=== PATIENT | female | born 1970 | race Caucasian/White ===

== ENCOUNTER 2017-05-27 18:10 | Emergency (ER) | payer OTHER ==
--- NOTE | 2017-05-27 19:01 | ED CLINICAL REPORT ---
Clinical Report - Physicians/Mid Levels [facility] [address] [place] [address] 05/27/2017 18:11 Patient: KYLEE SALEH Time Seen: 18:26. Arrived- By private vehicle. Historian- patient. HISTORY OF PRESENT ILLNESS Chief Complaint: TENDER AREA. This started about 1 1/2 weeks ago and is still present. It was gradual in onset and has been waxing/waning. It is described as painful. It has been located on the right abdomen. A cause has been identified (Injection drug use site). Similar symptoms previously: Recent medical care: Not recently seen/assessed. REVIEW OF SYSTEMS No fever, chills, cough, difficulty breathing or headache. No chest pain, nausea, diarrhea, difficulty with urination or vomiting. She has had constant abdominal pain (only in area of abscess). The pain is described as located in the right lower quadrant. All systems otherwise negative, except as recorded above. PAST HISTORY Anxiety Reaction. Headache. Dental Abscess Substance abuse - injects heroin. Medications: Methadone HCl Oral 85mg, daily. Motrin Oral. Allergies: Penicillin. Sulfa Antibiotics. SOCIAL HISTORY Smoker- current status unknown. History of IV drug use: heroin. No alcohol use. Residence: [place]. ADDITIONAL NOTES The nursing notes have been reviewed. PHYSICAL EXAM Vital Signs: 05/27/2017 18:16 BP: 114/75. HR: 110. RR: 20. O2 saturation: 100%. Temp: 98.2 F. Pain level now: 5/10. Eyes: Conjunctivae and eyelids normal. ENT: Pharynx normal. Neck: Neck supple. CVS: Tachycardia. Heart sounds normal. Respiratory: No respiratory distress. Breath sounds normal. Abdomen: Moderate tenderness in the right lower quadrant. No organomegaly. (abscess RLQ o/w nontender). Skin: No cyanosis. No pallor. No diaphoresis. Single large abscess with fluctuance and cellulitis to the abdomen. No drainage. Extremities: Normal external inspection. Extremities nontender. Neuro: Oriented X 3. LABS, X-RAYS, AND EKG Laboratory Tests: Culture, Wound Surface: (GABBY: 05/27/2017 18:45) ( MsgRcvd 05/27/2017 20:12) IP SPECIMEN DESCRIPTION: ABSCESS Test Result Flag Units (Reference) GRAM STAIN, WOUND, SUPERFICIAL DATE: 05/27/17 EPITHELIAL CELLS: RARE GRAM POSITIVE COCCI: MANY WHITE BLOOD CELLS: NONE -- ABDOMEN . Pulse Oximetry: 05/27/2017 18:16 O2 saturation: 100%. (FIO2 - room air). Interpretation: normal. PROGRESS AND PROCEDURES Incision & Drainage of Abscess: The abscess is located in the abdomen. The risks of the procedure, benefits and alternatives were explained. Consent was obtained. Local anesthesia provided using 0.50% Marcaine with epi and bicarb. Skin cleansed with Betadine. The abscess was incised with a #11 surgical blade. A large amount of pus was drained. Cavity was irrigated with saline and packed with gauze. Sample obtained for cultures and gram stain. A dressing was applied. Course of Care: Clindamycin 300 mg PO given. Large abscess with I&D. No fever or systemic symptoms now. Recommended IV antibiotics but pt states we will not be able to start an IV, so refuses this. I have suggested central line or IO line, but again she refuses this - after discussion of risks and benefits. Abscess I&D is likely to result in resolution of the infectious process, but has coexistent cellulitis, therefore I will continue course of abx- she is sulfa and pen allergic. I will begin clinda until cultures return or pt is having definite clinical improvement. Patient/family counseled. Old ED records reviewed. Disposition orders written. Disposition: Discharged. Condition: stable and improved. CLINICAL IMPRESSION Cellulitis of the abdominal wall. Single deep abscess to the abdominal wall with incision and drainage. Chronic substance abuse- tobacco (cigarettes), heroin. No intoxication. INSTRUCTIONS Do not work for two days. Drink plenty of fluids. Do not smoke. Seek medical help to quit smoking. (You may change the packing in about 48 hours with the packing and tools provided- please clean with isopropyl alcohol and let air dry before using - or your doctor may choose to change the packing for you). Warnings: Further evaluation is necessary in order to obtain test results and conduct further tests. It is very important to follow up with a physician. GENERAL WARNINGS: Return or contact your physician immediately if your condition worsens or changes unexpectedly, if not improving as expected, or if other problems arise. Your Current Medications: CONTINUE TAKING THE FOLLOWING MEDICATIONS: Methadone HCl Oral : 85mg daily. Motrin Oral. Prescription Medications: Clindamycin 300 mg: take 1 capsule orally every 6 hours for 7 days. No refills. OTC Medications: Acetaminophen (available over the counter): take according to label instructions. Motrin (available over the counter): take according to label instructions. Follow-up with: [facility], , , [address] [place] [id number]; [facility], , , [address] [place] [address], Follow up in about two days. Call for the next available appointment. Follow-up with: [facility], Family [facility], , [address] [place] [address]; [facility], , , [facility], [address] [place] [address] [address], [place] [address] Follow up in about two days. Call for the next available appointment. (Electronically signed by Chase Marquez DO 05/27/2017 22:47)
--- NOTE | 2017-05-27 19:01 | ED CLINICAL REPORT ---
Clinical Report - Physicians/Mid Levels [facility] [address] [place] [address] 05/27/2017 18:11 Patient: KYLEE SALEH Time Seen: 18:26. Arrived- By private vehicle. Historian- patient. HISTORY OF PRESENT ILLNESS Chief Complaint: TENDER AREA. This started about 1 1/2 weeks ago and is still present. It was gradual in onset and has been waxing/waning. It is described as painful. It has been located on the right abdomen. A cause has been identified (Injection drug use site). Similar symptoms previously: Recent medical care: Not recently seen/assessed. REVIEW OF SYSTEMS No fever, chills, cough, difficulty breathing or headache. No chest pain, nausea, diarrhea, difficulty with urination or vomiting. She has had constant abdominal pain (only in area of abscess). The pain is described as located in the right lower quadrant. All systems otherwise negative, except as recorded above. PAST HISTORY Anxiety Reaction. Headache. Dental Abscess Substance abuse - injects heroin. Medications: Methadone HCl Oral 85mg, daily. Motrin Oral. Allergies: Penicillin. Sulfa Antibiotics. SOCIAL HISTORY Smoker- current status unknown. History of IV drug use: heroin. No alcohol use. Residence: [place]. ADDITIONAL NOTES The nursing notes have been reviewed. PHYSICAL EXAM Vital Signs: 05/27/2017 18:16 BP: 114/75. HR: 110. RR: 20. O2 saturation: 100%. Temp: 98.2 F. Pain level now: 5/10. Eyes: Conjunctivae and eyelids normal. ENT: Pharynx normal. Neck: Neck supple. CVS: Tachycardia. Heart sounds normal. Respiratory: No respiratory distress. Breath sounds normal. Abdomen: Moderate tenderness in the right lower quadrant. No organomegaly. (abscess RLQ o/w nontender). Skin: No cyanosis. No pallor. No diaphoresis. Single large abscess with fluctuance and cellulitis to the abdomen. No drainage. Extremities: Normal external inspection. Extremities nontender. Neuro: Oriented X 3. LABS, X-RAYS, AND EKG Laboratory Tests: Culture, Wound Surface: (GABBY: 05/27/2017 18:45) ( MsgRcvd 05/27/2017 20:12) IP SPECIMEN DESCRIPTION: ABSCESS Test Result Flag Units (Reference) GRAM STAIN, WOUND, SUPERFICIAL DATE: 05/27/17 EPITHELIAL CELLS: RARE GRAM POSITIVE COCCI: MANY WHITE BLOOD CELLS: NONE -- ABDOMEN . Pulse Oximetry: 05/27/2017 18:16 O2 saturation: 100%. (FIO2 - room air). Interpretation: normal. PROGRESS AND PROCEDURES Incision & Drainage of Abscess: The abscess is located in the abdomen. The risks of the procedure, benefits and alternatives were explained. Consent was obtained. Local anesthesia provided using 0.50% Marcaine with epi and bicarb. Skin cleansed with Betadine. The abscess was incised with a #11 surgical blade. A large amount of pus was drained. Cavity was irrigated with saline and packed with gauze. Sample obtained for cultures and gram stain. A dressing was applied. Course of Care: Clindamycin 300 mg PO given. Large abscess with I&D. No fever or systemic symptoms now. Recommended IV antibiotics but pt states we will not be able to start an IV, so refuses this. I have suggested central line or IO line, but again she refuses this - after discussion of risks and benefits. Abscess I&D is likely to result in resolution of the infectious process, but has coexistent cellulitis, therefore I will continue course of abx- she is sulfa and pen allergic. I will begin clinda until cultures return or pt is having definite clinical improvement. Patient/family counseled. Old ED records reviewed. Disposition orders written. Disposition: Discharged. Condition: stable and improved. CLINICAL IMPRESSION Cellulitis of the abdominal wall. Single deep abscess to the abdominal wall with incision and drainage. Chronic substance abuse- tobacco (cigarettes), heroin. No intoxication. INSTRUCTIONS Do not work for two days. Drink plenty of fluids. Do not smoke. Seek medical help to quit smoking. (You may change the packing in about 48 hours with the packing and tools provided- please clean with isopropyl alcohol and let air dry before using - or your doctor may choose to change the packing for you). Warnings: Further evaluation is necessary in order to obtain test results and conduct further tests. It is very important to follow up with a physician. GENERAL WARNINGS: Return or contact your physician immediately if your condition worsens or changes unexpectedly, if not improving as expected, or if other problems arise. Your Current Medications: CONTINUE TAKING THE FOLLOWING MEDICATIONS: Methadone HCl Oral : 85mg daily. Motrin Oral. Prescription Medications: Clindamycin 300 mg: take 1 capsule orally every 6 hours for 7 days. No refills. OTC Medications: Acetaminophen (available over the counter): take according to label instructions. Motrin (available over the counter): take according to label instructions. Follow-up with: [facility], , , [address] [place] [id number]; [facility], , , [address] [place] [address], Follow up in about two days. Call for the next available appointment. Follow-up with: [facility], Family [facility], , [address] [place] [address]; [facility], , , [facility], [address] [place] [address] [address], [place] [id number] Follow up in about two days. Call for the next available appointment. (Electronically signed by Chase Marquez DO 05/27/2017 22:47)
--- NOTE | 2017-05-27 19:01 | ED ORDER SUMMARY ---
..... Patient: KYLEE SALEH OrderSheet [facility] VisitID: [id number] [address] [place] [address] 46y, F Registration Date/Time: 05/27/2017 ORDER SHEET Weight: 53.9 kg (stated) Allergies: Penicillin, Sulfa Antibiotics GENERAL ORDERS: Culture, Wound Surface (Abdomen) (abscess) Urgent (19:04 05/27/2017 Nannette PATTERSON) (19:21 Rod R.N.) MEDICATION ORDERS: Clindamycin PO 300 mg (NOW) (18:56 05/27/2017 Nannette PATTERSON) (Ack 18:56 Festusy R.N.) (18:58 JBlizy R.N.) IV FLUIDS: Vancomycin IV 2 gm/500 mL (NOW) (18:34 05/27/2017 Nannette PATTERSON) (Ack 18:38 Festusy R.N.) (Cancelled: Patient [id number] Nannette PATTERSON) ORDER SHEET NOTES: [Electronically signed by Alfie Martin R.N. (19:22 05/27/2017)] [Electronically signed by Chase Marquez DO (22:47 05/27/2017)] [Electronically locked/signed by Alfie Martin R.N. (19:22 05/27/2017)]
--- NOTE | 2017-05-27 19:01 | ED NURSING NOTES ---
Clinical Report - Nurses [facility] [address] [place] [address] 05/27/2017 18:11 Patient: KYLEE SALEH TRIAGE Triage time 18:16. Acuity: LEVEL 4. Chief Complaint: SKIN RASH. 18:20 05/27/17. 18:20 05/27/17. Alert. ( Pt states she is a heroin addict. Pt states she injected in her RLQ 2 weeks and now has a sore area. Pt states she is in methadone treatment.). SEPSIS SCREEN: Sepsis Screen. Negative (no infection suspected/documented). --18:25 Alfie Martin R.N. 18:16 05/27/17. BP: 114/75. HR: 110. RR: 20. O2 saturation: 100% on room air. Temp: 98.2 F (oral). Pain level now: 5/10. --18:25 Alfie Martin R.N. Weight: 53.9 kg stated. Height/Length: 65 inches Per Patient. BMI: 19.8. --18:20 Alfie Martin R.N. Medications Motrin Oral. --18:24 Alfie Martin R.N. Methadone HCl Oral 85mg, daily. --18:26 Alfie Martin R.N. Allergies Penicillin. Sulfa Antibiotics. --18:24 Alfie Martin R.N. History Arrived by private vehicle, and unaccompanied. Primary physician (Palak). 18:20 05/27/17. Reported as (RLQ). Onset. (2 days ago). It is described as painful. Treatment STRATIGRAPHER: None. PAST MEDICAL HX: Immunizations: up-to-date. Last normal menstrual period now. Denies current . SOCIAL HX: Current every day light tobacco smoker (cigarette)- less than 1/2 a pack per day. History of drug use: heroin. No alcohol use. No infectious disease exposure. FALL RISK ASSESSMENT: Fall risk assessment completed. No fall risk identified. NUTRITIONAL RISK ASSESSMENT: The nutritional risk assessment revealed no deficiencies. FUNCTIONAL ASSESSMENT: Functional assessment: no impairments noted. LEARNING NEEDS ASSESSMENT: The learning needs assessment revealed no barriers. SKIN INTEGRITY ASSESSMENT: Skin integrity risk assessment completed. No skin integrity risk identified. --18:25 Alfie Martin R.N. PROBLEMS: Anxiety Reaction. Headache. Dental Abscess. --18:25 Alfie Martin R.N. ADDITIONAL SURGERIES: . --18:25 Alfie Martin R.N. Assessment 18:20 05/27/17. --18:25 Alfie Martin R.N. Interventions 18:20 05/27/17. 18:20 05/27/17. ID and allergy band on patient. To treatment room. --18:25 Alfie Martin R.N. PHYSICAL ASSESSMENT 18:05/27/17. Ambulatory to room. GENERAL / NEURO / PSYCH: Alert. The patient does not appear to be in acute distress. Oriented X 4. RESPIRATORY: Respirations not labored. CVS: Capillary refill less than 2 seconds. SKIN: Skin tenderness present- RLQ. Medium sized area of erythema- associated with swelling- RLQ. --18:25 Alfie Martin R.N. NURSING PROGRESS NOTES 18:25 05/27/17. The plan of care for this patient has been created. Patient gowned. Head of bed elevated. Two patient identifiers checked. Call light placed in reach. Side rails up x 2. Bed placed in lowest position. Brakes of bed on. Patient ready for evaluation- chart flagged and notification provided. --18:25 Alfie Martin R.N. Patient ID band checked for patient name and birthdate: patient confirmed. Instructions provided to collect clean catch urine and patient verbalized understanding. Clean catch urine collected with return of chris-colored urine; sample sent to lab for urinalysis and culture. Specimen labeled in the presence of the patient. --18:29 Wang Weston R.N. 18:39 05/27/17. ( MD at bedside, completing I and D of wound). --18:39 Alfie Martin R.N. ( pt refused IV,). --18:58 Carrillo Starr R.N. 18:58 05/27/2017 Clindamycin PO 300 mg given. Allergies verified and confirmed 5 rights. --18:58 Alfie Martin R.N. 19:01 05/27/17. I & D: Incision and Drainage of abscess performed by ED physician. Preparation: Incision and Drainage tray set up. Procedure. Sample obtained for cultures. ( 100 cc of fluid removed from abd area by MD). --19:01 Alfie Martin R.N. late entry -19:15. ( Dressing applied to abd area). --19:22 Alfie Martin R.N. DISPOSITION / DISCHARGE 19:18 05/27/17. Condition at departure: improved. The goals identified in the patient's plan of care were met. No learning barriers present. Discharge instructions provided and reviewed with the patient. Reviewed warnings. Reviewed medication(s). Treatments reviewed. Patient verbalized understanding. ( Pt will follow up with PCP for packing change in 2 days. Pt change dressing as needed and daily.). The patient was discharged by the physician. She was discharged home and accompanied by family. She left the Emergency Department ambulatory and via private vehicle. Family member driving. FALL RISK ASSESSMENT: Fall risk assessment completed. No fall risk identified. --19:18 Alfie Martin R.N. 19:16 05/27/17. BP: 119/70. HR: 99 (regular). ED physician notified. RR: 18. O2 saturation: 7%. Temp: 98.6 F (oral). --19:18 Alfie Martin R.N. 19:18 05/27/17. --19:18 Alfie Martin R.N. 19:18 05/27/17. Pain level now: 02/23. --19:18 Alfie Martin R.N. 19:18 05/27/17. Departure time: 19:May 27 2017. --19:18 Alfei Martin R.N. Locked/Released at 05/27/2017 19:22 by Alfie Martin R.N.
--- NOTE | 2017-05-27 19:01 | ED ORDER SUMMARY ---
..... Patient: KYLEE SALEH OrderSheet [facility] VisitID: [id number] [address] [place] [address] 46y, F Registration Date/Time: 05/27/2017 ORDER SHEET Weight: 53.9 kg (stated) Allergies: Penicillin, Sulfa Antibiotics GENERAL ORDERS: Culture, Wound Surface (Abdomen) (abscess) Urgent (19:04 05/27/2017 Nannette PATTERSON) (19:21 Rod R.N.) MEDICATION ORDERS: Clindamycin PO 300 mg (NOW) (18:56 05/27/2017 Nannette PATTERSON) (Ack 18:56 Festusy R.N.) (18:58 JBlizy R.N.) IV FLUIDS: Vancomycin IV 2 gm/500 mL (NOW) (18:34 05/27/2017 Nannette PATTERSON) (Ack 18:38 Festusy R.N.) (Cancelled: Patient [id number] Nannette PATTERSON) ORDER SHEET NOTES: [Electronically signed by Alfie Martin R.N. (19:22 05/27/2017)] [Electronically signed by Chase Marquez DO (22:47 05/27/2017)] [Electronically locked/signed by Alfie Martin R.N. (19:22 05/27/2017)]
--- NOTE | 2017-05-27 22:48 | ED DISCHARGE INSTRUCTIONS ---
Patient: KYLEE SALEH General Instructions [facility] VisitID: [id number] [address], [place] [address] 46y, F Registration Date/Time: 05/27/2017 Cellulitis of the abdominal wall. Single deep abscess to the abdominal wall with incision and drainage. Chronic substance abuse- tobacco (cigarettes), heroin. No intoxication. INSTRUCTIONS Do not work for two days. Drink plenty of fluids. Do not smoke. Seek medical help to quit smoking. (You may change the packing in about 48 hours with the packing and tools provided- please clean with isopropyl alcohol and let air dry before using - or your doctor may choose to change the packing for you). Warnings: Further evaluation is necessary in order to obtain test results and conduct further tests. It is very important to follow up with a physician. GENERAL WARNINGS: Return or contact your physician immediately if your condition worsens or changes unexpectedly, if not improving as expected, or if other problems arise. Your Current Medications: CONTINUE TAKING THE FOLLOWING MEDICATIONS: Methadone HCl Oral : 85mg daily. Motrin Oral. Prescription Medications: Clindamycin 300 mg: take 1 capsule orally every 6 hours for 7 days. No refills. OTC Medications: Acetaminophen (available over the counter): take according to label instructions. Motrin (available over the counter): take according to label instructions. Follow-up with: [facility], , , [address], [place] [address]; [facility], , , [address] [place] [address], Follow up in about two days. Call for the next available appointment. Follow-up with: [facility], Family Practice, , [address] [place] [address]; [facility], , , [facility], [address] [place] [address] [address], [place] [address] Follow up in about two days. Call for the next available appointment. ADDITIONAL INFORMATION Cellulitis You have an infection of the skin known as cellulitis. This usually starts with a scrape, cut, insect bite, blister or other opening in the skin which becomes infected. This is a serious condition. It must be watched closely to be sure the infection is not spreading. With antibiotic treatment, the size of the red area will gradually shrink in size until the skin returns to normal. This will take 7-10 days. The red area should never increase in size once the antibiotic medicine has been started. Occasionally, an infection will be resistant to one antibiotic and another one will have to be used. Home Care: 1) Limit the use of the affected part, since excess movement can cause the infection to spread. 2) If the infection is on your leg, walk as little as possible during the first few days of the treatment. Keep your leg elevated while sitting. This will reduce swelling. 3) Take all of the antibiotic medicine exactly as directed until it is gone. Be careful not to miss any doses, especially during the first seven days. Follow Up with your doctor or this facility as directed. Check the infected area daily for the warning signs listed below. Get Prompt Medical Attention if any of the following occur: -- Spreading area of redness -- Increasing swelling or pain -- Appearance of pus or drainage -- Fever over 100.4 F (38.0 C) oral, or over 101.4 F (38.6 C) rectal, after two days on antibiotics Abscess [Incision & Drainage] An abscess (sometimes called a boil) occurs when bacteria get trapped under the skin and begin to grow. Pus forms inside the abscess as the body responds to the bacteria. An abscess can occur with an insect bite, ingrown hair, blocked oil gland, pimple, cyst, or puncture wound. Treatment of your abscess has required an incision to drain the pus. If the abscess pocket was large, a gauze packing may have been inserted. This will need to be removed and possibly replaced on your next visit. Antibiotics are not required in the treatment of a simple abscess, unless the infection is spreading into the skin around the wound (known as cellulitis). Healing of the wound will take about one to two weeks depending on the size of the abscess. Healthy tissue will grow from the bottom and sides of the opening until it seals over. Home Care: The wound may drain for the first two days. Cover the wound with a clean dry dressing. If the dressing becomes soaked with blood or pus, change it. If a gauze packing was placed inside the abscess cavity, you may be advised to remove it yourself. You may do this in the shower. Once the packing is removed, you should wash the area in the shower or bath 3 to 4 times a day, until the skin opening has closed. If you were prescribed antibiotics, take them as directed until they are all gone. You may use acetaminophen (Tylenol) or ibuprofen (Motrin, Advil) to control pain, unless another pain medicine was prescribed. [ NOTE: If you have liver disease or ever had a stomach ulcer, talk with your doctor before using these medicines.] Follow Up with your doctor as advised by our staff. If a gauze packing was inserted in your wound, it should be removed in 1-2 days. Check your wound every day for the signs of worsening infection listed below. Get Prompt Medical Attention if any of the following occur: Increasing redness or swelling Red streaks in the skin leading away from the wound Increasing local pain or swelling Continued pus draining from the wound two days after treatment Fever of 100.4F (38C) or higher, or as directed by your healthcare provider Opiate Abuse Use and abuse of heroin or prescription pain medicines (Vicodin, codeine) may lead to physical ADDICTION or psychological DEPENDENCE. Once this occurs, you are at greater risk for any of the following: - Craving for the drug and unable to stop using the drug even though you think you want to stop (psychological dependence) - Drug withdrawal symptoms if you stop taking the drug (physical addiction) - Loss of your job or your family - Arrest, conviction and mcf[facility] sentence for possession of an illegal substance or for driving under the influence of such a substance - Accidental injuries to yourself or others while you are under the influence of the drug (in a car or at home). - HIV infection (much greater risk if you use IV drugs) - Other sexually transmitted diseases (Herpes, chlamydia, gonorrhea and others) - Severe and fatal infection of the heart valves (if you use IV drugs) - Stroke, heart attack, hepatitis B or C, kidney failure - from overdose Home Care: 1) Admit you have a drug problem. Ask for help from your family and close friends. 2) Seek professional help. This could be individual psychotherapy, counseling, or a drug treatment program (outpatient or residential). 3) Join a self-help group for drug abuse. 4) Avoid friends who abuse drugs themselves or tempt you to continue your habit 5) Eat a balanced diet and begin a regular exercise program. Follow Up with your doctor or as advised by our staff. Contact one of the resources below for help. National [place] on Alcoholism and Drug Dependence, www.ncadd.org 486-971-TKCP Narcotics Anonymous (check your phone book for a local listing or call 837-765-4983) www.na.org National Alcohol and Substance Abuse Information Center (for referral to treatment programs) Www.AddictioncareCrescentrating 596-236-5256 Get Prompt Medical Attention if any of the following occur: -- Symptoms of withdrawal (agitation, anxiety, trembling, sweats, diarrhea, unable to sleep) -- Chest pain -- Unexplained fever over 100.4 F (38.0 C) -- Excessive drowsiness or inability to be awakened -- Slow breathing under 8 breaths per minute -- Shortness of breath or cough with colored sputum -- Redness, swelling or tenderness at an injection site How To Quit Smoking Smoking is one of the hardest habits to break. About half of all those who have ever smoked have been able to quit, and most of those (about 70%) who still smoke want to quit. Here are some of the best ways to stop smoking. Keep Trying: It takes most smokers about 8 tries before they are finally able to fully quit. So, the more often you try and fail, the better your chance of quitting the next time! So, don't give up! Go Cold [place]: Most ex-smokers quit cold turkey. Trying to cut back gradually doesn't seem to work as well, perhaps because it continues the smoking habit. Also, it is possible to fool yourself by inhaling more while smoking fewer cigarettes. This results in the same amount of nicotine in your body! Get Support: Support programs can make an important difference, especially for the heavy smoker. These groups offer lectures, methods to change your behavior and peer support. Call the free national Quitline for more information. 854-GLIQ-LMY (375-676-9791). Low-cost or free programs are offered by many hospitals, local chapters of the [place] [employer] (876-774-7037) and the [place] [employer] (672-810-0660). Support at home is important too. Non-smokers can help by offering praise and encouragement. If the smoker fails to quit, encourage them to try again! Bcge-Ccx-Dzpnpxv Medicines: For those who can't quit on their own, Nicotine Replacement Therapy (NRT) may make quitting much easier. Certain aids such as the nicotine patch, gum and lozenge are available without a prescription. However, it is best to use these under the guidance of your doctor. The skin patch provides a steady supply of nicotine to the body. Nicotine gum and lozenge gives temporary bursts of low levels of nicotine. Both methods take the edge off the craving for cigarettes. WARNING: If you feel symptoms of nicotine overdose, such as nausea, vomiting, dizziness, weakness, or fast heartbeat, stop using these and see your doctor. Prescription Medicines: After evaluating your smoking patterns and prior attempts at quitting, your doctor may offer a prescription medicine such as bupropion (Zyban, Wellbutrin), varenicline (Chantix, Champix), a niocotine inhaler or nasal spray. Each has its unique advantage and side effects which your doctor can review with you. Health Benefits Of Quitting: The benefits of quitting start right away and keep improving the longer you go without smokin minutes: blood pressure and pulse return to normal 8 hours: oxygen levels return to normal 2 days: ability to smell and taste begins to improve as damaged nerves start to regrow 2-3 weeks: circulation and lung function improves 1-9 months: decreased cough, congestion and shortness of breath; less tired 1 year: risk of heart attack decreases by half 5 years: risk of lung cancer decreases by half; risk of stroke becomes the same as a non-smoker For information about how to quit smoking, visit the following links: National [employer] , Clearing the Air, Quit Smoking Today - an online booklet. http://www.smokefree.gov/pubs/clearing_the_air.pdf Smokefree.gov http://smokefree.gov/ QuitNet http://www.quitnet.com/ Clindamycin Hydrochloride Oral capsule What is this medicine? CLINDAMYCIN (KLIN da MYE sin) is a lincosamide antibiotic. It is used to treat certain kinds of bacterial infections. It will not work for colds, flu, or other viral infections. How should I use this medicine? Take this medicine by mouth with a full glass of water. Follow the directions on the prescription label. You can take this medicine with food or on an empty stomach. If the medicine upsets your stomach, take it with food. Take your medicine at regular intervals. Do not take your medicine more often than directed. Take all of your medicine as directed even if you think your are better. Do not skip doses or stop your medicine early. Talk to your hogshead inspector regarding the use of this medicine in children. Special care may be needed. What side effects may I notice from receiving this medicine? Side effects that you should report to your doctor or health health care marketing manager as soon as possible: allergic reactions like skin rash, itching or hives, swelling of the face, lips, or tongue dark urine pain on swallowing redness, blistering, peeling or loosening of the skin, including inside the mouth unusual bleeding or bruising unusually weak or tired yellowing of eyes or skin Side effects that usually do not require medical attention (report to your doctor or health health care marketing manager if they continue or are bothersome): diarrhea itching in the rectal or genital area joint pain nausea, vomiting stomach pain What may interact with this medicine? chloramphenicol erythromycin kaolin products What if I miss a dose? If you miss a dose, take it as soon as you can. If it is almost time for your next dose, take only that dose. Do not take double or extra doses. Where should I keep my medicine? Keep out of the reach of children. Store at room temperature between 20 and 25 degrees C (68 and 77 degrees F). Throw away any unused medicine after the expiration date. What should I tell my health care provider before I take this medicine? They need to know if you have any of these conditions: kidney disease liver disease stomach problems like colitis an unusual or allergic reaction to clindamycin, lincomycin, or other medicines, foods, dyes like tartrazine or preservatives or trying to get breast-feeding What should I watch for while using this medicine? Tell your doctor or healthcare professional if your symptoms do not start to get better or if they get worse. Do not treat diarrhea with over the counter products. Contact your doctor if you have diarrhea that lasts more than 2 days or if it is severe and watery. Acetaminophen Oral tablet What is this medicine? ACETAMINOPHEN (a set a TANNER liliana fen) is a pain reliever. It is used to treat mild pain and fever. How should I use this medicine? Take this medicine by mouth with a glass of water. Follow the directions on the package or prescription label. Take your medicine at regular intervals. Do not take your medicine more often than directed. Talk to your hogshead inspector regarding the use of this medicine in children. While this drug may be prescribed for children as young as 6 years of age for selected conditions, precautions do apply. What side effects may I notice from receiving this medicine? Side effects that you should report to your doctor or health health care marketing manager as soon as possible: allergic reactions like skin rash, itching or hives, swelling of the face, lips, or tongue breathing problems fever or sore throat redness, blistering, peeling or loosening of the skin, including inside the mouth trouble passing urine or change in the amount of urine unusual bleeding or bruising unusually weak or tired yellowing of the eyes or skin Side effects that usually do not require medical attention (report to your doctor or health health care marketing manager if they continue or are bothersome): headache nausea, stomach upset What may interact with this medicine? alcohol imatinib isoniazid other medicines with acetaminophen What if I miss a dose? If you miss a dose, take it as soon as you can. If it is almost time for your next dose, take only that dose. Do not take double or extra doses. Where should I keep my medicine? Keep out of reach of children. Store at room temperature between 20 and 25 degrees C (68 and 77 degrees F). Protect from moisture and heat. Throw away any unused medicine after the expiration date. What should I tell my health care provider before I take this medicine? They need to know if you have any of these conditions: if you frequently drink alcohol containing drinks liver disease an unusual or allergic reaction to acetaminophen, other medicines, foods, dyes or preservatives or trying to get breast-feeding What should I watch for while using this medicine? Tell your doctor or health health care marketing manager if the pain lasts more than 10 days (5 days for children), if it gets worse, or if there is a new or different kind of pain. Also, check with your doctor if a fever lasts for more than 3 days. Do not take other medicines that contain acetaminophen with this medicine. Always read labels carefully. If you have questions, ask your doctor or pharmacist. If you take too much acetaminophen get medical help right away. Too much acetaminophen can be very dangerous and cause liver damage. Even if you do not have symptoms, it is important to get help right away. Ibuprofen Oral tablet What is this medicine? IBUPROFEN (eye BYOO proe fen) is a non-steroidal anti-inflammatory drug (NSAID). It is used for dental pain, fever, headaches or migraines, osteoarthritis, rheumatoid arthritis, or painful monthly periods. It can also relieve minor aches and pains caused by a cold, flu, or sore throat. How should I use this medicine? Take this medicine by mouth with a glass of water. Follow the directions on the prescription label. Take this medicine with food if your stomach gets upset. Try to not lie down for at least 10 minutes after you take the medicine. Take your medicine at regular intervals. Do not take your medicine more often than directed. A special MedGuide will be given to you by the pharmacist with each prescription and refill. Be sure to read this information carefully each time. Talk to your hogshead inspector regarding the use of this medicine in children. Special care may be needed. What side effects may I notice from receiving this medicine? Side effects that you should report to your doctor or health health care marketing manager as soon as possible: allergic reactions like skin rash, itching or hives, swelling of the face, lips, or tongue black or bloody stools, blood in the urine or in vomit breathing problems changes in vision chest pain general ill feeling or flu-like symptoms nausea or vomiting redness, blistering, peeling or loosening of the skin, including inside the mouth slurred speech or weakness on one side of the body stomach pain unexplained weight gain or swelling unusually weak or tired yellowing of eyes or skin Side effects that usually do not require medical attention (report to your doctor or health health care marketing manager if they continue or are bothersome): constipation or diarrhea dizziness gas or heartburn stomach upset What may interact with this medicine? Do not take this medicine with any of the following medications: cidofovir ketorolac methotrexate pemetrexed This medicine may also interact with the following medications: alcohol aspirin diuretics lithium other drugs for inflammation like prednisone warfarin What if I miss a dose? If you miss a dose, take it as soon as you can. If it is almost time for your next dose, take only that dose. Do not take double or extra doses. Where should I keep my medicine? Keep out of the reach of children. Store at room temperature between 15 and 30 degrees C (59 and 86 degrees F). Keep container tightly closed. Throw away any unused medicine after the expiration date. What should I tell my health care provider before I take this medicine? They need to know if you have any of these conditions: asthma cigarette smoker drink more than 3 alcohol containing drinks a day heart disease or circulation problems such as heart failure or leg edema (fluid retention) high blood pressure kidney disease liver disease stomach bleeding or ulcers an unusual or allergic reaction to ibuprofen, aspirin, other NSAIDS, other medicines, foods, dyes, or preservatives or trying to get breast-feeding What should I watch for while using this medicine? Tell your doctor or healthcare professional if your symptoms do not start to get better or if they get worse. This medicine does not prevent heart attack or stroke. In fact, this medicine may increase the chance of a heart attack or stroke. The chance may increase with longer use of this medicine and in people who have heart disease. If you take aspirin to prevent heart attack or stroke, talk with your doctor or health health care marketing manager. Do not take other medicines that contain aspirin, ibuprofen, or naproxen with this medicine. Side effects such as stomach upset, nausea, or ulcers may be more likely to occur. Many medicines available without a prescription should not be taken with this medicine. This medicine can cause ulcers and bleeding in the stomach and intestines at any time during treatment. Ulcers and bleeding can happen without warning symptoms and can cause . To reduce your risk, do not smoke cigarettes or drink alcohol while you are taking this medicine. You may get drowsy or dizzy. Do not drive, use machinery, or do anything that needs mental alertness until you know how this medicine affects you. Do not stand or sit up quickly, especially if you are an older patient. This reduces the risk of dizzy or fainting spells. This medicine can cause you to bleed more easily. Try to avoid damage to your teeth and gums when you brush or floss your teeth. You have been given the following additional information: Cellulitis Abscess, Incision And Drainage Opiate Abuse Smoking Cessation Clindamycin Hydrochloride Oral capsule Acetaminophen Oral tablet Ibuprofen Oral tablet Do not work for two days. (Electronically signed by Chase Marquez DO 05/27/2017 22:47)
--- NOTE | 2017-05-27 22:48 | ED MAR SUMMARY ---
..... Medication Administration Record [facility] [address] [place] [address] Patient: KYLEE SALEH Visit ID: [id number] 46y, F Weight: 53.9 kg Height/Length: 65 in BMI: 19.8 ALLERGIES: Penicillin, Sulfa Antibiotics Given 18:58 05/27/2017 Alfie Martin R.N. Medication Administered: CLINDAMYCIN [PO], Dose: 300 mg PO. Medication Ordered: Clindamycin PO 300 mg (NOW).
--- NOTE | 2017-05-27 22:48 | ED MED RECONCILIATION SUMMARY ---
Patient: KYLEE SALEH Medication Reconciliation Report [facility] VisitID: [id number] [address] [place] [address] 46y, F Registration Date/Time: 05/27/2017 Weight: 53.9 kg Height/Length: 65 in. BMI: 19.8 ALLERGIES: Penicillin, Sulfa Antibiotics The patient's Home Medications are listed below: CONTINUE TAKING THE FOLLOWING MEDICATIONS: Methadone HCl Oral 85mg, daily Motrin Oral The source(s) of the original Home Medication information: Not obtained. The following Medications were given to the patient in the Emergency Department: Clindamycin [PO] PO 300 mg, administered: 05/27/2017 6:58:00 PM The following Medications were prescribed to the patient: Acetaminophen (available over the counter): take according to label instructions. -- Chase Marquez DO Motrin (available over the counter): take according to label instructions. -- Chase Marquez DO Clindamycin 300 mg: take 1 capsule orally every 6 hours for 7 days. No refills. -- Chase Marquez DO
--- NOTE | 2017-05-27 22:48 | ED MED RECONCILIATION SUMMARY ---
Patient: KYLEE SALEH Medication Reconciliation Report [facility] VisitID: [id number] [address] [place] [address] 46y, F Registration Date/Time: 05/27/2017 Weight: 53.9 kg Height/Length: 65 in. BMI: 19.8 ALLERGIES: Penicillin, Sulfa Antibiotics The patient's Home Medications are listed below: CONTINUE TAKING THE FOLLOWING MEDICATIONS: Methadone HCl Oral 85mg, daily Motrin Oral The source(s) of the original Home Medication information: Not obtained. The following Medications were given to the patient in the Emergency Department: Clindamycin [PO] PO 300 mg, administered: 05/27/2017 6:58:00 PM The following Medications were prescribed to the patient: Acetaminophen (available over the counter): take according to label instructions. -- Chase Marquez DO Motrin (available over the counter): take according to label instructions. -- Chase Marquez DO Clindamycin 300 mg: take 1 capsule orally every 6 hours for 7 days. No refills. -- Chase Marquez DO
--- NOTE | 2017-05-27 22:48 | ED DISCHARGE INSTRUCTIONS ---
Patient: KYLEE SALEH General Instructions [facility] VisitID: [id number] [address], [place] [address] 46y, F Registration Date/Time: 05/27/2017 Cellulitis of the abdominal wall. Single deep abscess to the abdominal wall with incision and drainage. Chronic substance abuse- tobacco (cigarettes), heroin. No intoxication. INSTRUCTIONS Do not work for two days. Drink plenty of fluids. Do not smoke. Seek medical help to quit smoking. (You may change the packing in about 48 hours with the packing and tools provided- please clean with isopropyl alcohol and let air dry before using - or your doctor may choose to change the packing for you). Warnings: Further evaluation is necessary in order to obtain test results and conduct further tests. It is very important to follow up with a physician. GENERAL WARNINGS: Return or contact your physician immediately if your condition worsens or changes unexpectedly, if not improving as expected, or if other problems arise. Your Current Medications: CONTINUE TAKING THE FOLLOWING MEDICATIONS: Methadone HCl Oral : 85mg daily. Motrin Oral. Prescription Medications: Clindamycin 300 mg: take 1 capsule orally every 6 hours for 7 days. No refills. OTC Medications: Acetaminophen (available over the counter): take according to label instructions. Motrin (available over the counter): take according to label instructions. Follow-up with: [facility], , , [address], [place] [address]; [facility], , , [address] [place] [address], Follow up in about two days. Call for the next available appointment. Follow-up with: [facility], Family Practice, , [address] [place] [address]; [facility], , , [facility], [address] [place] [address] [address], [place] [address] Follow up in about two days. Call for the next available appointment. ADDITIONAL INFORMATION Cellulitis You have an infection of the skin known as cellulitis. This usually starts with a scrape, cut, insect bite, blister or other opening in the skin which becomes infected. This is a serious condition. It must be watched closely to be sure the infection is not spreading. With antibiotic treatment, the size of the red area will gradually shrink in size until the skin returns to normal. This will take 7-10 days. The red area should never increase in size once the antibiotic medicine has been started. Occasionally, an infection will be resistant to one antibiotic and another one will have to be used. Home Care: 1) Limit the use of the affected part, since excess movement can cause the infection to spread. 2) If the infection is on your leg, walk as little as possible during the first few days of the treatment. Keep your leg elevated while sitting. This will reduce swelling. 3) Take all of the antibiotic medicine exactly as directed until it is gone. Be careful not to miss any doses, especially during the first seven days. Follow Up with your doctor or this facility as directed. Check the infected area daily for the warning signs listed below. Get Prompt Medical Attention if any of the following occur: -- Spreading area of redness -- Increasing swelling or pain -- Appearance of pus or drainage -- Fever over 100.4 F (38.0 C) oral, or over 101.4 F (38.6 C) rectal, after two days on antibiotics Abscess [Incision & Drainage] An abscess (sometimes called a boil) occurs when bacteria get trapped under the skin and begin to grow. Pus forms inside the abscess as the body responds to the bacteria. An abscess can occur with an insect bite, ingrown hair, blocked oil gland, pimple, cyst, or puncture wound. Treatment of your abscess has required an incision to drain the pus. If the abscess pocket was large, a gauze packing may have been inserted. This will need to be removed and possibly replaced on your next visit. Antibiotics are not required in the treatment of a simple abscess, unless the infection is spreading into the skin around the wound (known as cellulitis). Healing of the wound will take about one to two weeks depending on the size of the abscess. Healthy tissue will grow from the bottom and sides of the opening until it seals over. Home Care: The wound may drain for the first two days. Cover the wound with a clean dry dressing. If the dressing becomes soaked with blood or pus, change it. If a gauze packing was placed inside the abscess cavity, you may be advised to remove it yourself. You may do this in the shower. Once the packing is removed, you should wash the area in the shower or bath 3 to 4 times a day, until the skin opening has closed. If you were prescribed antibiotics, take them as directed until they are all gone. You may use acetaminophen (Tylenol) or ibuprofen (Motrin, Advil) to control pain, unless another pain medicine was prescribed. [ NOTE: If you have liver disease or ever had a stomach ulcer, talk with your doctor before using these medicines.] Follow Up with your doctor as advised by our staff. If a gauze packing was inserted in your wound, it should be removed in 1-2 days. Check your wound every day for the signs of worsening infection listed below. Get Prompt Medical Attention if any of the following occur: Increasing redness or swelling Red streaks in the skin leading away from the wound Increasing local pain or swelling Continued pus draining from the wound two days after treatment Fever of 100.4F (38C) or higher, or as directed by your healthcare provider Opiate Abuse Use and abuse of heroin or prescription pain medicines (Vicodin, codeine) may lead to physical ADDICTION or psychological DEPENDENCE. Once this occurs, you are at greater risk for any of the following: - Craving for the drug and unable to stop using the drug even though you think you want to stop (psychological dependence) - Drug withdrawal symptoms if you stop taking the drug (physical addiction) - Loss of your job or your family - Arrest, conviction and group home sentence for possession of an illegal substance or for driving under the influence of such a substance - Accidental injuries to yourself or others while you are under the influence of the drug (in a car or at home). - HIV infection (much greater risk if you use IV drugs) - Other sexually transmitted diseases (Herpes, chlamydia, gonorrhea and others) - Severe and fatal infection of the heart valves (if you use IV drugs) - Stroke, heart attack, hepatitis B or C, kidney failure - from overdose Home Care: 1) Admit you have a drug problem. Ask for help from your family and close friends. 2) Seek professional help. This could be individual psychotherapy, counseling, or a drug treatment program (outpatient or residential). 3) Join a self-help group for drug abuse. 4) Avoid friends who abuse drugs themselves or tempt you to continue your habit 5) Eat a balanced diet and begin a regular exercise program. Follow Up with your doctor or as advised by our staff. Contact one of the resources below for help. National [place] on Alcoholism and Drug Dependence, www.ncadd.org 332-423-UPNS Narcotics Anonymous (check your phone book for a local listing or call 258-078-5543) www.na.org National Alcohol and Substance Abuse Information Center (for referral to treatment programs) Www.AddictioncareAnavex 770-174-3479 Get Prompt Medical Attention if any of the following occur: -- Symptoms of withdrawal (agitation, anxiety, trembling, sweats, diarrhea, unable to sleep) -- Chest pain -- Unexplained fever over 100.4 F (38.0 C) -- Excessive drowsiness or inability to be awakened -- Slow breathing under 8 breaths per minute -- Shortness of breath or cough with colored sputum -- Redness, swelling or tenderness at an injection site How To Quit Smoking Smoking is one of the hardest habits to break. About half of all those who have ever smoked have been able to quit, and most of those (about 70%) who still smoke want to quit. Here are some of the best ways to stop smoking. Keep Trying: It takes most smokers about 8 tries before they are finally able to fully quit. So, the more often you try and fail, the better your chance of quitting the next time! So, don't give up! Go Cold [place]: Most ex-smokers quit cold turkey. Trying to cut back gradually doesn't seem to work as well, perhaps because it continues the smoking habit. Also, it is possible to fool yourself by inhaling more while smoking fewer cigarettes. This results in the same amount of nicotine in your body! Get Support: Support programs can make an important difference, especially for the heavy smoker. These groups offer lectures, methods to change your behavior and peer support. Call the free national Quitline for more information. 208-NRAK-KNI (724-623-2757). Low-cost or free programs are offered by many hospitals, local chapters of the [place] [employer] (236-419-9230) and the [place] [employer] (959-873-0270). Support at home is important too. Non-smokers can help by offering praise and encouragement. If the smoker fails to quit, encourage them to try again! Cndj-Xhx-Wbyzdyd Medicines: For those who can't quit on their own, Nicotine Replacement Therapy (NRT) may make quitting much easier. Certain aids such as the nicotine patch, gum and lozenge are available without a prescription. However, it is best to use these under the guidance of your doctor. The skin patch provides a steady supply of nicotine to the body. Nicotine gum and lozenge gives temporary bursts of low levels of nicotine. Both methods take the edge off the craving for cigarettes. WARNING: If you feel symptoms of nicotine overdose, such as nausea, vomiting, dizziness, weakness, or fast heartbeat, stop using these and see your doctor. Prescription Medicines: After evaluating your smoking patterns and prior attempts at quitting, your doctor may offer a prescription medicine such as bupropion (Zyban, Wellbutrin), varenicline (Chantix, Champix), a niocotine inhaler or nasal spray. Each has its unique advantage and side effects which your doctor can review with you. Health Benefits Of Quitting: The benefits of quitting start right away and keep improving the longer you go without smokin minutes: blood pressure and pulse return to normal 8 hours: oxygen levels return to normal 2 days: ability to smell and taste begins to improve as damaged nerves start to regrow 2-3 weeks: circulation and lung function improves 1-9 months: decreased cough, congestion and shortness of breath; less tired 1 year: risk of heart attack decreases by half 5 years: risk of lung cancer decreases by half; risk of stroke becomes the same as a non-smoker For information about how to quit smoking, visit the following links: National Cancer [place] , Clearing the Air, Quit Smoking Today - an online booklet. http://www.smokefree.gov/pubs/clearing_the_air.pdf Smokefree.gov http://smokefree.gov/ QuitNet http://www.quitnet.com/ Clindamycin Hydrochloride Oral capsule What is this medicine? CLINDAMYCIN (KLIN da MYE sin) is a lincosamide antibiotic. It is used to treat certain kinds of bacterial infections. It will not work for colds, flu, or other viral infections. How should I use this medicine? Take this medicine by mouth with a full glass of water. Follow the directions on the prescription label. You can take this medicine with food or on an empty stomach. If the medicine upsets your stomach, take it with food. Take your medicine at regular intervals. Do not take your medicine more often than directed. Take all of your medicine as directed even if you think your are better. Do not skip doses or stop your medicine early. Talk to your state superintendent of schools regarding the use of this medicine in children. Special care may be needed. What side effects may I notice from receiving this medicine? Side effects that you should report to your doctor or health healthcare consultant as soon as possible: allergic reactions like skin rash, itching or hives, swelling of the face, lips, or tongue dark urine pain on swallowing redness, blistering, peeling or loosening of the skin, including inside the mouth unusual bleeding or bruising unusually weak or tired yellowing of eyes or skin Side effects that usually do not require medical attention (report to your doctor or health healthcare consultant if they continue or are bothersome): diarrhea itching in the rectal or genital area joint pain nausea, vomiting stomach pain What may interact with this medicine? chloramphenicol erythromycin kaolin products What if I miss a dose? If you miss a dose, take it as soon as you can. If it is almost time for your next dose, take only that dose. Do not take double or extra doses. Where should I keep my medicine? Keep out of the reach of children. Store at room temperature between 20 and 25 degrees C (68 and 77 degrees F). Throw away any unused medicine after the expiration date. What should I tell my health care provider before I take this medicine? They need to know if you have any of these conditions: kidney disease liver disease stomach problems like colitis an unusual or allergic reaction to clindamycin, lincomycin, or other medicines, foods, dyes like tartrazine or preservatives or trying to get breast-feeding What should I watch for while using this medicine? Tell your doctor or healthcare professional if your symptoms do not start to get better or if they get worse. Do not treat diarrhea with over the counter products. Contact your doctor if you have diarrhea that lasts more than 2 days or if it is severe and watery. Acetaminophen Oral tablet What is this medicine? ACETAMINOPHEN (a set a TANNER liliana fen) is a pain reliever. It is used to treat mild pain and fever. How should I use this medicine? Take this medicine by mouth with a glass of water. Follow the directions on the package or prescription label. Take your medicine at regular intervals. Do not take your medicine more often than directed. Talk to your state superintendent of schools regarding the use of this medicine in children. While this drug may be prescribed for children as young as 6 years of age for selected conditions, precautions do apply. What side effects may I notice from receiving this medicine? Side effects that you should report to your doctor or health healthcare consultant as soon as possible: allergic reactions like skin rash, itching or hives, swelling of the face, lips, or tongue breathing problems fever or sore throat redness, blistering, peeling or loosening of the skin, including inside the mouth trouble passing urine or change in the amount of urine unusual bleeding or bruising unusually weak or tired yellowing of the eyes or skin Side effects that usually do not require medical attention (report to your doctor or health healthcare consultant if they continue or are bothersome): headache nausea, stomach upset What may interact with this medicine? alcohol imatinib isoniazid other medicines with acetaminophen What if I miss a dose? If you miss a dose, take it as soon as you can. If it is almost time for your next dose, take only that dose. Do not take double or extra doses. Where should I keep my medicine? Keep out of reach of children. Store at room temperature between 20 and 25 degrees C (68 and 77 degrees F). Protect from moisture and heat. Throw away any unused medicine after the expiration date. What should I tell my health care provider before I take this medicine? They need to know if you have any of these conditions: if you frequently drink alcohol containing drinks liver disease an unusual or allergic reaction to acetaminophen, other medicines, foods, dyes or preservatives or trying to get breast-feeding What should I watch for while using this medicine? Tell your doctor or health healthcare consultant if the pain lasts more than 10 days (5 days for children), if it gets worse, or if there is a new or different kind of pain. Also, check with your doctor if a fever lasts for more than 3 days. Do not take other medicines that contain acetaminophen with this medicine. Always read labels carefully. If you have questions, ask your doctor or pharmacist. If you take too much acetaminophen get medical help right away. Too much acetaminophen can be very dangerous and cause liver damage. Even if you do not have symptoms, it is important to get help right away. Ibuprofen Oral tablet What is this medicine? IBUPROFEN (eye BYOO proe fen) is a non-steroidal anti-inflammatory drug (NSAID). It is used for dental pain, fever, headaches or migraines, osteoarthritis, rheumatoid arthritis, or painful monthly periods. It can also relieve minor aches and pains caused by a cold, flu, or sore throat. How should I use this medicine? Take this medicine by mouth with a glass of water. Follow the directions on the prescription label. Take this medicine with food if your stomach gets upset. Try to not lie down for at least 10 minutes after you take the medicine. Take your medicine at regular intervals. Do not take your medicine more often than directed. A special MedGuide will be given to you by the pharmacist with each prescription and refill. Be sure to read this information carefully each time. Talk to your state superintendent of schools regarding the use of this medicine in children. Special care may be needed. What side effects may I notice from receiving this medicine? Side effects that you should report to your doctor or health healthcare consultant as soon as possible: allergic reactions like skin rash, itching or hives, swelling of the face, lips, or tongue black or bloody stools, blood in the urine or in vomit breathing problems changes in vision chest pain general ill feeling or flu-like symptoms nausea or vomiting redness, blistering, peeling or loosening of the skin, including inside the mouth slurred speech or weakness on one side of the body stomach pain unexplained weight gain or swelling unusually weak or tired yellowing of eyes or skin Side effects that usually do not require medical attention (report to your doctor or health healthcare consultant if they continue or are bothersome): constipation or diarrhea dizziness gas or heartburn stomach upset What may interact with this medicine? Do not take this medicine with any of the following medications: cidofovir ketorolac methotrexate pemetrexed This medicine may also interact with the following medications: alcohol aspirin diuretics lithium other drugs for inflammation like prednisone warfarin What if I miss a dose? If you miss a dose, take it as soon as you can. If it is almost time for your next dose, take only that dose. Do not take double or extra doses. Where should I keep my medicine? Keep out of the reach of children. Store at room temperature between 15 and 30 degrees C (59 and 86 degrees F). Keep container tightly closed. Throw away any unused medicine after the expiration date. What should I tell my health care provider before I take this medicine? They need to know if you have any of these conditions: asthma cigarette smoker drink more than 3 alcohol containing drinks a day heart disease or circulation problems such as heart failure or leg edema (fluid retention) high blood pressure kidney disease liver disease stomach bleeding or ulcers an unusual or allergic reaction to ibuprofen, aspirin, other NSAIDS, other medicines, foods, dyes, or preservatives or trying to get breast-feeding What should I watch for while using this medicine? Tell your doctor or healthcare professional if your symptoms do not start to get better or if they get worse. This medicine does not prevent heart attack or stroke. In fact, this medicine may increase the chance of a heart attack or stroke. The chance may increase with longer use of this medicine and in people who have heart disease. If you take aspirin to prevent heart attack or stroke, talk with your doctor or health healthcare consultant. Do not take other medicines that contain aspirin, ibuprofen, or naproxen with this medicine. Side effects such as stomach upset, nausea, or ulcers may be more likely to occur. Many medicines available without a prescription should not be taken with this medicine. This medicine can cause ulcers and bleeding in the stomach and intestines at any time during treatment. Ulcers and bleeding can happen without warning symptoms and can cause . To reduce your risk, do not smoke cigarettes or drink alcohol while you are taking this medicine. You may get drowsy or dizzy. Do not drive, use machinery, or do anything that needs mental alertness until you know how this medicine affects you. Do not stand or sit up quickly, especially if you are an older patient. This reduces the risk of dizzy or fainting spells. This medicine can cause you to bleed more easily. Try to avoid damage to your teeth and gums when you brush or floss your teeth. You have been given the following additional information: Cellulitis Abscess, Incision And Drainage Opiate Abuse Smoking Cessation Clindamycin Hydrochloride Oral capsule Acetaminophen Oral tablet Ibuprofen Oral tablet Do not work for two days. (Electronically signed by Chaes Marquez DO 05/27/2017 22:47)
--- NOTE | 2017-05-27 22:48 | ED MAR SUMMARY ---
..... Medication Administration Record [facility] [address] [place] [address] Patient: KYLEE SALEH Visit ID: [id number] 46y, F Weight: 53.9 kg Height/Length: 65 in BMI: 19.8 ALLERGIES: Penicillin, Sulfa Antibiotics Given 18:58 05/27/2017 Alfie Martin R.N. Medication Administered: CLINDAMYCIN [PO], Dose: 300 mg PO. Medication Ordered: Clindamycin PO 300 mg (NOW).
== END 2017-05-27 19:18 | disposition home or self-care (01) ==
LOC: ED SRH 18:10
DX: L02.211 Cutaneous abscess of abdominal wall (principal); L03.311 Cellulitis of abdominal wall; F11.10 Opioid abuse, uncomplicated; F17.210 Nicotine dependence, cigarettes, uncomplicated; Z79.891 Long term (current) use of opiate analgesic; Z79.1 Long term (current) use of non-steroidal anti-inflammatories (NSAID); Z88.0 Allergy status to penicillin; Z88.2 Allergy status to sulfonamides
CPT/HCPCS: 90131; 90309

== ENCOUNTER 2017-05-29 15:11 | Emergency (ER) | payer OTHER ==
--- NOTE | 2017-05-29 15:31 | ED CLINICAL REPORT ---
Clinical Report - Physicians/Mid Levels [facility] [address] [place] [address] 05/29/2017 15:11 Patient: KYLEE SALEH Time Seen: 15:22; upon arrival, initial patient contact, initial documentation, patient care assumed. Arrived- By private vehicle. Historian- patient. HISTORY OF PRESENT ILLNESS Chief Complaint: RECHECK. Treated in emergency department two days ago. The patient has experienced pain since the procedure was performed. (clindamycin). Previous emergency department treatment: Incision and Drainage of abscess and prescription antibiotic given. REVIEW OF SYSTEMS All systems otherwise negative, except as recorded above. PAST HISTORY See nurses notes. PROBLEMS: Anxiety Reaction. Headache. Dental Abscess. --18:25 Alfie Martin R.N. ADDITIONAL SURGERIES: . --18:25 Alfie Martin R.N. SOCIAL HISTORY Light tobacco smoker. History of heavy IV drug use: heroin. No alcohol use. No recent travel. Is a local resident. ADDITIONAL NOTES The nursing notes have been reviewed with agreement regarding the chief complaint, HPI, ROS, PMH and patient medications and allergies. PHYSICAL EXAM Vital Signs: 05/29/2017 15:21 BP: 112/79. HR: 82. RR: 16. O2 saturation: 100%. Temp: 98.9 F. Pain level now: 5/10. Have been reviewed as normal and appear to be correct. Appearance: Alert. Oriented X3. No acute distress. Eyes: Pupils equal, round and reactive to light. EOM intact. Skin: Healing cellulitis. Healing abscess. Neuro: Oriented X 3. No motor deficit. No sensory deficit. PROGRESS AND PROCEDURES Abscess Recheck: The abscess is located on the abdomen (RLQ). Packing is present. Examination of abscess reveals normal healing and no tenderness but infection. Mild purulent exudate present. Packing was removed. Patient counseled in person regarding the patient's stable condition and diagnosis. Differential Diagnosis: Other possible considerations: cellulitis, abscess. Above considerations are based on history and physical exam. Differential diagnosis was discussed with patient. Disposition: Discharged home in good and improved condition (15:31). Condition: good and stable. CLINICAL IMPRESSION Abscess check INSTRUCTIONS Protect wound and keep wound area clean. Soak in warm soapy water twice daily. (continue antibiotics as previously directed and discussed). Warnings: GENERAL WARNINGS: Return or contact your physician immediately if your condition worsens or changes unexpectedly, if not improving as expected, or if other problems arise. Specifically return if problem worsens. Follow-up: Follow up with your doctor in about two days even if well and for wound check. Call for an appointment. Summary of care provided to patient. Understanding of the discharge instructions verbalized by patient. (Electronically signed by Rebecca Eduardo A.R.N.P. 05/29/2017 17:56)
--- NOTE | 2017-05-29 15:31 | ED NURSING NOTES ---
Clinical Report - Nurses [facility] [address] [place] [address] 05/29/2017 15:11 Patient: KYLEE SALEH TRIAGE Triage time 15:May 29 2017. Acuity: LEVEL 4. Chief Complaint: RECHECK OF WOUND. Alert. No acute distress. MICHAEL COMA SCORE: Michael Coma Scale: 15- eyes open spontaneously (4); best verbal response- oriented x 4 (5); best motor response- obeys commands (6). --15:28 Rosalind Little R.N. 15:21 05/29/17. BP: 112/79. HR: 82. RR: 16. O2 saturation: 100%. Temp: 98.9 F. Pain level now: 03/25. --15:28 Rosalind Little R.N. Weight: 53.9 kg stated. Height/Length: 65 inches Per Patient. BMI: 19.8. --15:24 Rosalind Little R.N. Medications Advil Oral. Clindamycin HCl Oral. --15:22 Rosalind Little R.N. Methadone HCl Oral. --15:27 Rosalind Little R.N. Allergies Penicillin. Sulfa Antibiotics. --15:25 Rosalind Little R.N. History Arrived by private vehicle. Historian: patient. Accompanied by family. Location: abdomen. She has had drainage from wound and has experienced pain. ( "just doesn't feel right"). Previous treatment: Previously seen in ED two days ago. Incision and drainage of abscess performed. PO antibiotic given in ED. PAST MEDICAL HX: Tetanus status: up-to-date. Immunizations: up-to-date. Last normal menstrual period was 1 week ago. Denies current . SOCIAL HX: Current every day heavy tobacco smoker (cigarette)- less than 1 pack per day. History of drug use: heroin. No alcohol use. SELF HARM ASSESSMENT: A self harm assessment was performed. The patient answered "no" to the question "Do you have thoughts of harming or killing yourself?" and "Have you recently had thoughts about harming or killing others?". FALL RISK ASSESSMENT: Fall risk assessment completed. No fall risk identified. NUTRITIONAL RISK ASSESSMENT: The nutritional risk assessment revealed no deficiencies. FUNCTIONAL ASSESSMENT: Functional assessment: no impairments noted. LEARNING NEEDS ASSESSMENT: The learning needs assessment revealed no barriers. ABUSE ASSESSMENT: Abuse assessment: The patient was asked "Do you feel safe in your home?". SKIN INTEGRITY ASSESSMENT: Skin integrity risk assessment completed. No skin integrity risk identified. --15:28 Rosalind Little R.N. PROBLEMS: Abscess. Cellulitis. Substance Abuse. Anxiety Reaction. Headache. Dental Abscess. --15:25 Rosalind Little R.N. ADDITIONAL SURGERIES: . Incision and drainage of abscess. --15:25 Rosalind Little R.N. Interventions ID band on patient. To room. --15:28 Rosalind Little R.N. PHYSICAL ASSESSMENT GENERAL / NEURO / PSYCH: Alert. Oriented X 4. Appears in no acute distress. Patient's nutrition appears within normal limits. EXTREMITIES: Capillary refill is less than 2 seconds in the extremities. SKIN: Warmth. Skin is warm and dry. Healing wound. Tenderness. --15:29 Rosalind Little R.N. NURSING PROGRESS NOTES Patient gowned. Patient identifiers checked. Call light placed in reach. Side rails up x 1. Bed placed in lowest position. Brakes of bed on. --15:29 Rosalind Little R.N. Wound cleansed with Hibiclens. Applied dressing consisting of Band-Aid. Reassessment after (wound care). She is calm. Overall patient status is the same- she states feels better. --15:37 Rosalind Little R.N. DISPOSITION / DISCHARGE Departure time: 15:40 May 29 2017. Condition at departure: improved. ( pt states that her abdomen feels better with packing out). No learning barriers present. Discharge instructions provided and reviewed with the patient. Reviewed medication(s) (continue medications). Reviewed referral to a primary care physician for followup. Patient verbalized understanding. Written instructions provided in Kyrgyz. The patient was discharged home and accompanied by family. She left the Emergency Department ambulatory and via private vehicle. Family member driving. FALL RISK ASSESSMENT: Fall risk assessment completed. No fall risk identified. --15:52 Rosalind Little R.N. Locked/Released at 05/29/2017 15:53 by Rosalind Little R.N.
--- NOTE | 2017-05-29 15:31 | ED CLINICAL REPORT ---
Clinical Report - Physicians/Mid Levels [facility] [address] [place] [address] 05/29/2017 15:11 Patient: KYLEE SALEH Time Seen: 15:22; upon arrival, initial patient contact, initial documentation, patient care assumed. Arrived- By private vehicle. Historian- patient. HISTORY OF PRESENT ILLNESS Chief Complaint: RECHECK. Treated in emergency department two days ago. The patient has experienced pain since the procedure was performed. (clindamycin). Previous emergency department treatment: Incision and Drainage of abscess and prescription antibiotic given. REVIEW OF SYSTEMS All systems otherwise negative, except as recorded above. PAST HISTORY See nurses notes. PROBLEMS: Anxiety Reaction. Headache. Dental Abscess. --18:25 Alfie Martin R.N. ADDITIONAL SURGERIES: . --18:25 Alfie Martin R.N. SOCIAL HISTORY Light tobacco smoker. History of heavy IV drug use: heroin. No alcohol use. No recent travel. Is a local resident. ADDITIONAL NOTES The nursing notes have been reviewed with agreement regarding the chief complaint, HPI, ROS, PMH and patient medications and allergies. PHYSICAL EXAM Vital Signs: 05/29/2017 15:21 BP: 112/79. HR: 82. RR: 16. O2 saturation: 100%. Temp: 98.9 F. Pain level now: 5/10. Have been reviewed as normal and appear to be correct. Appearance: Alert. Oriented X3. No acute distress. Eyes: Pupils equal, round and reactive to light. EOM intact. Skin: Healing cellulitis. Healing abscess. Neuro: Oriented X 3. No motor deficit. No sensory deficit. PROGRESS AND PROCEDURES Abscess Recheck: The abscess is located on the abdomen (RLQ). Packing is present. Examination of abscess reveals normal healing and no tenderness but infection. Mild purulent exudate present. Packing was removed. Patient counseled in person regarding the patient's stable condition and diagnosis. Differential Diagnosis: Other possible considerations: cellulitis, abscess. Above considerations are based on history and physical exam. Differential diagnosis was discussed with patient. Disposition: Discharged home in good and improved condition (15:31). Condition: good and stable. CLINICAL IMPRESSION Abscess check INSTRUCTIONS Protect wound and keep wound area clean. Soak in warm soapy water twice daily. (continue antibiotics as previously directed and discussed). Warnings: GENERAL WARNINGS: Return or contact your physician immediately if your condition worsens or changes unexpectedly, if not improving as expected, or if other problems arise. Specifically return if problem worsens. Follow-up: Follow up with your doctor in about two days even if well and for wound check. Call for an appointment. Summary of care provided to patient. Understanding of the discharge instructions verbalized by patient. (Electronically signed by Rebecca Eduardo A.R.N.P. 05/29/2017 17:56)
--- NOTE | 2017-05-29 17:57 | ED MED RECONCILIATION SUMMARY ---
Patient: KYLEE SALEH Medication Reconciliation Report [facility] VisitID: [id number] [address] [place] [address] 46y, F Registration Date/Time: 05/29/2017 Weight: 53.9 kg Height/Length: 65 in. BMI: 19.8 ALLERGIES: Penicillin, Sulfa Antibiotics The patient's Home Medications are listed below: THE FOLLOWING MEDICATIONS NEED TO BE RECONCILED: Advil Oral Clindamycin HCl Oral Methadone HCl Oral The source(s) of the original Home Medication information: Not obtained. The following Medications were given to the patient in the Emergency Department: None. The following Medications were prescribed to the patient: None.
--- NOTE | 2017-05-29 17:57 | ED DISCHARGE INSTRUCTIONS ---
Patient: KYLEE SALEH General Instructions [facility] VisitID: [id number] [place] [address] 46y, F Registration Date/Time: 05/29/2017 Abscess check INSTRUCTIONS Protect wound and keep wound area clean. Soak in warm soapy water twice daily. (continue antibiotics as previously directed and discussed). Warnings: GENERAL WARNINGS: Return or contact your physician immediately if your condition worsens or changes unexpectedly, if not improving as expected, or if other problems arise. Specifically return if problem worsens. Follow-up: Follow up with your doctor in about two days even if well and for wound check. Call for an appointment. Summary of care provided to patient. Understanding of the discharge instructions verbalized by patient. ADDITIONAL INFORMATION Abscess [Incision & Drainage] An abscess (sometimes called a boil) occurs when bacteria get trapped under the skin and begin to grow. Pus forms inside the abscess as the body responds to the bacteria. An abscess can occur with an insect bite, ingrown hair, blocked oil gland, pimple, cyst, or puncture wound. Treatment of your abscess has required an incision to drain the pus. If the abscess pocket was large, a gauze packing may have been inserted. This will need to be removed and possibly replaced on your next visit. Antibiotics are not required in the treatment of a simple abscess, unless the infection is spreading into the skin around the wound (known as cellulitis). Healing of the wound will take about one to two weeks depending on the size of the abscess. Healthy tissue will grow from the bottom and sides of the opening until it seals over. Home Care: The wound may drain for the first two days. Cover the wound with a clean dry dressing. If the dressing becomes soaked with blood or pus, change it. If a gauze packing was placed inside the abscess cavity, you may be advised to remove it yourself. You may do this in the shower. Once the packing is removed, you should wash the area in the shower or bath 3 to 4 times a day, until the skin opening has closed. If you were prescribed antibiotics, take them as directed until they are all gone. You may use acetaminophen (Tylenol) or ibuprofen (Motrin, Advil) to control pain, unless another pain medicine was prescribed. [ NOTE: If you have liver disease or ever had a stomach ulcer, talk with your doctor before using these medicines.] Follow Up with your doctor as advised by our staff. If a gauze packing was inserted in your wound, it should be removed in 1-2 days. Check your wound every day for the signs of worsening infection listed below. Get Prompt Medical Attention if any of the following occur: Increasing redness or swelling Red streaks in the skin leading away from the wound Increasing local pain or swelling Continued pus draining from the wound two days after treatment Fever of 100.4F (38C) or higher, or as directed by your healthcare provider Staph Infection (MRSA) "Staph" is the short name for the common bacteria called "staphylococcus aureus". Staph bacteria are often present on the skin without causing an infection. If it gets under the skin an infection occurs. This causes redness, tenderness, swelling and sometimes fluid drainage. MRSA stands for "Methicillin-Resistant Staph Aureus". Unlike a common staph infection, MRSA bacteria are resistant to the usual antibiotics and harder to treat. Also, MRSA is more toxic than common staph bacteria. It can spread quickly throughout the body and cause a life-threatening illness. MRSA is spread to others by direct physical contact with the bacteria. MRSA can also be transmitted from items contaminated by a person who has the bacteria, such as bandages, towels, bed sheets, or sports equipment. It is not spread through the air. Once you have a MRSA skin infection, you are at risk of having it recur in the future. If MRSA infection is suspected, the doctor may take a wound culture to confirm the diagnosis. Any abscess will be drained. One or sometimes two antibiotics that work against MRSA will be prescribed. Home Care: 1) Take any antibiotics prescribed exactly as directed until they are gone. 2) Follow the same washing procedures as outlined for Household Members below. 3) Keep draining wounds covered with clean, dry bandages. Change dressings as they become soiled. 4) You and those in contact with you should wash their hands frequently with soap and warm water or use an alcohol-based hand application internship. Do this after each time you change the bandage or touch the wound. 5) Avoid sharing personal items such as towels, washcloths, razors, clothing, or uniforms. Wash soiled sheets, towels or clothes in hot water with laundry detergent. Use an automatic clothes dryer set on high to kill any remaining bacteria. 6) Remove any artificial nails and nail yoruba. 7) If you use a gym, wipe down equipment before and after each use. Treatment Of Household Members If you have been diagnosed with possible MRSA infection, those living with you are at higher risk of carrying the bacteria on their skin or in their nose, even if there is no sign of infection. Bacteria must be removed from the skin of all household members (including you) at the same time, so that it is not passed back and forth. Advise them to remove the bacteria as follows: Wash your whole body (scalp to toes) daily for five days with Hibiclens (chlorhexidine). Scrub fingernails with a brush for one minute twice a day. If any skin infections are present (boils, abscess, infected cut) these must be treated by a doctor. Washing alone will not treat a MRSA infection. Clean counter tops and children's toys; do not share personal items such as toothbrush and razors. It is okay to share glasses, plates, utensils. If antibiotic ointment was prescribed use it as directed. Follow Up with your doctor or as advised by our staff. If a wound culture was taken, call as directed in two days to obtain the results. If the culture result is positive for MRSA, tell medical personnel in the future that you were treated for this type of infection. Get Prompt Medical Attention if any of the following occur: -- Increasing redness, swelling or pain -- Red streaks in the skin around the wound -- Weakness or dizziness -- New appearance of pus or drainage from the wound -- New fever over 100.4 F (38.0 C) You have been given the following additional information: Abscess, Incision And Drainage MRSA Skin Infection, Suspected Or Confirmed (Electronically signed by Rebecca Eduardo A.R.N.P. 05/29/2017 17:56)
--- NOTE | 2017-05-29 17:57 | ED MED RECONCILIATION SUMMARY ---
Patient: KYLEE SALEH Medication Reconciliation Report [facility] VisitID: [id number] [address] [place] [address] 46y, F Registration Date/Time: 05/29/2017 Weight: 53.9 kg Height/Length: 65 in. BMI: 19.8 ALLERGIES: Penicillin, Sulfa Antibiotics The patient's Home Medications are listed below: THE FOLLOWING MEDICATIONS NEED TO BE RECONCILED: Advil Oral Clindamycin HCl Oral Methadone HCl Oral The source(s) of the original Home Medication information: Not obtained. The following Medications were given to the patient in the Emergency Department: None. The following Medications were prescribed to the patient: None.
--- NOTE | 2017-05-29 17:57 | ED MAR SUMMARY ---
..... Medication Administration Record [facility] [address] [place], [place] [id number] Patient: KYLEE SALEH Visit ID: [id number] 46y, F Weight: 53.9 kg Height/Length: 65 in BMI: 19.8 ALLERGIES: Penicillin, Sulfa Antibiotics
--- NOTE | 2017-05-29 17:57 | ED MAR SUMMARY ---
..... Medication Administration Record [facility] [address] [place], [place] [id number] Patient: KYLEE SALEH Visit ID: [id number] 46y, F Weight: 53.9 kg Height/Length: 65 in BMI: 19.8 ALLERGIES: Penicillin, Sulfa Antibiotics
== END 2017-05-29 15:40 | disposition home or self-care (01) ==
LOC: ED SRH 15:11
DX: Z48.01 Encounter for change or removal of surgical wound dressing (principal); L02.211 Cutaneous abscess of abdominal wall; F17.210 Nicotine dependence, cigarettes, uncomplicated; Z88.0 Allergy status to penicillin; Z88.2 Allergy status to sulfonamides